=== PATIENT | male | born 1995 | race Caucasian/White ===

== ENCOUNTER 2022-03-27 13:24 | Emergency (ER) | payer OTHER ==
[~2022-03-27] VITALS: Ht 167.6 cm; Wt 62.1 kg
[~2022-03-27 13:24] MED LIST: FOLI1TAB90 PO; LIB25 PO; THIA-34 PO
[2022-03-27 13:43] VITALS: BP 127/99
--- NOTE | 2022-03-27 13:49 | NUR ---
Patient was wheelchair assisted to bed 7
--- NOTE | 2022-03-27 13:49 | NUR ---
PT W/C ASSISTED TO ER BED 7
--- NOTE | 2022-03-27 14:10 | NUR ---
26 y/o male c/o knee and leg pain since wednesday, reports pain came on suddenly making ambulation difficult. Patient stated "I can't walk". Reports constant 8/10 sharp "needle pain" that radiates to feet. Denies injury or trauma, tingling, nvd, dysuria, fever, chills, cp, or sob. Took antihistamine yesterday, unaware of name, without relief.
--- NOTE | 2022-03-27 14:31 | NUR ---
SARAH Vázquez evaluating patient at bedside.
[2022-03-27] MEDS ORDERED: DICYCLOMINE HCL LIQUID 20 MG, ALUMINUM HYD/MAG/SIMETHICONE 30 ML, LIDOCAINE VISCOUS 2% ... PO ONE ×3 (14:45)
[2022-03-27] MEDS ORDERED: KETOROLAC 30 MG/ML VIAL IM ONE (14:45)
[2022-03-27] MEDS ORDERED: DICYCLOMINE HCL LIQUID 10 MG/5 ML UDC ONE (14:51)
[2022-03-27] MEDS ORDERED: ALUMINUM HYD/MAG/SIMETHICONE 30 ML UDC ONE (14:51)
[2022-03-27] MEDS ORDERED: NAPR-1704 PO (15:39)
[2022-03-27 16:00] VITALS: BP 134/85
--- NOTE | 2022-03-27 16:00 | NUR ---
Patient discharged with v/s stable. Written and verbal after care instructions given. Patient alert, oriented and verbalized understanding of instructions. Ambulatory with steady gait. All questions addressed prior to discharge. ID band removed. Patient advised to follow up with PMD. Rx of Naproxen given. Opportunity to ask questions provided and answered. WORK NOTE HANDED TO PATIENT.
== END 2022-03-27 16:00 | disposition home or self-care (01) ==
LOC: MED 13:24
DX: M25.562 Pain in left knee (principal); M25.561 Pain in right knee; M79.672 Pain in left foot; M79.671 Pain in right foot; Z79.899 Other long term (current) drug therapy
CPT/HCPCS: 96372; 99283; J1885

== ENCOUNTER 2022-03-30 04:40 | Emergency (ER) | payer OTHER ==
[~2022-03-30] VITALS: Ht 167.6 cm; Wt 63.5 kg
[2022-03-30 04:40] VITALS: BP 141/101
[~2022-03-30 04:40] MED LIST changes: +NAPR-1704 PO
--- NOTE | 2022-03-30 04:52 | NUR ---
26 Y/O MALE TIFFANYA FROM HOME, C/O BILATERAL KNEE PAIN AND DIFFUSE UPPER ABD PAIN X3 DAYS. PT STATES HIS KNEES GAVE OUT ON HIM YESTERDAY AND FELL FROM STANDING HEIGHT AND BIT LIP. PT STATES HE HAS BEEN TAKING NAPROXIN FOR BILATERAL PEDAL EDEMA. A/OX4, GCS-15; UNLABORED BREATHING, SPEAKING IN FULL SENTENCES; AMBULATORY WITH UNSTEADY GAIT DUE TO PAIN. SKIN IS PINK/DRY/WARM. DENIES COUGH, FEVER, CP, SOB, OR N/V. HX: COVID LAST MONTH, ETOH, PSYCH NKA NO MEDS Addendum: 03/30/22 at 0636 by [email or web address] PT STATES WHEN HE FELL (03/29 AT 2300) HE FELL ON HIS FACE AND STATES HE MAY HAVE GONE UNCONSCIOUS.
--- NOTE | 2022-03-30 04:58 | NUR ---
DR ORLANDO AT BEDSIDE EXAMINING PT
[2022-03-30] MEDS ORDERED: FAMOTIDINE 20 MG/2 ML VIAL IVP ONE (05:00)
[2022-03-30] MEDS ORDERED: NACL 0.9% 1,000 ML IV ONE ×2 (05:00)
[2022-03-30] MEDS ORDERED: MORPHINE SULFATE 4 MG/ML SYR IVP ONE (05:00)
--- NOTE | 2022-03-30 05:05 | NUR ---
BLOOD OBTAINED AND WALKED TO LAB
--- NOTE | 2022-03-30 05:13 | NUR ---
PT TAKEN TO RADIOLOGY VIA LELO
[2022-03-30 05:20] LABS: BASOPHILS # (AUTO) 0.1 K/uL (0.00-0.22); BASOPHILS % (AUTO) 1.5 % (0.0-2.0); EOSINOPHILS # (AUTO) 0.1 K/uL (0-0.4); EOSINOPHILS % (AUTO) 1.9 % (0.0-4.0); HEMATOCRIT 44.5 % (36-52); HEMOGLOBIN 14.9 g/dL (12.0-18.0); LYMPHOCYTES # (AUTO) 1.7 K/uL (2.0-11.5); LYMPHOCYTES % (AUTO) 22.8 % (20.5-51.1); MEAN CORPUSCULAR HEMOGLOBIN 34 pg (27-31); MEAN CORPUSCULAR HGB CONC 34 g/dL (33-37); MEAN CORPUSCULAR VOLUME 101.7 fL (80-94); MONOCYTES % (AUTO) 13.9 % (1.7-9.3); NEUTROPHILS # (AUTO) 4.5 K/uL (1.8-7.7); NEUTROPHILS % (AUTO) 59.9 % (42.2-75.2); PLATELET COUNT (AUTO) 408 K/uL (140-450); RED BLOOD CELL COUNT(AUTO) 4.37 MIL/uL (4.20-6.10); RED CELL DISTRIBUTION WIDTH 15.7 % (11.6-13.7); WHITE BLOOD COUNT (AUTO) 7.4 K/uL (4.8-10.8)
[2022-03-30 05:57] LABS: ALBUMIN 3.8 g/dL (3.4-5.0); ANION GAP 15.2 (8-16); CARBON DIOXIDE 30.5 mmol/L (21-32); CREATININE 0.6 mg/dL (0.6-1.3); POTASSIUM 3.7 mmol/L (3.5-5.1); TOTAL BILIRUBIN 0.5 mg/dL (0.0-1.0)
[2022-03-30] MEDS ORDERED: levETIRAcetam 1,000 MG in NACL 0.9% 100 ML IV ONE (06:20)
--- NOTE | 2022-03-30 06:35 | NUR ---
DR LOUIE AT BEDSIDE DISCUSSING PT RESULTS
--- NOTE | 2022-03-30 06:36 | NUR ---
URINE COLLECTED AND WALKED TO LAB
--- NOTE | 2022-03-30 06:50 | NUR ---
COVID/BRICE SWAB COLLECTED AND WALKED TO LAB
--- NOTE | 2022-03-30 06:51 | NUR ---
PT TAKEN TO CT FOR REPEAT IMAGING
[2022-03-30 06:53] LABS: PROTHROMBIN TIME 9.6 secs (10.8-13.4)
[2022-03-30] MEDS ORDERED: levETIRAcetam 100 MG/ML VIAL IV ONE (06:55)
[2022-03-30 07:06] LABS: APPEARANCE,URINE CLEAR (CLEAR); BILIRUBIN,URINE NEGATIVE (NEGATIVE); BLOOD, URINE NEGATIVE (NEGATIVE); COLOR,URINE YELLOW (YELLOW); LEUKOCYTE ESTERASE ,URINE NEGATIVE (NEGATIVE); NITRITE, URINE NEGATIVE (NEGATIVE); UGLUCOSE NEGATIVE (NEGATIVE)
--- NOTE | 2022-03-30 07:14 | NUR ---
Pt report given to MICHAEL LINDSEY. Transfer of care at this time.
--- NOTE | 2022-03-30 07:17 | NUR ---
REPORT RECEIVED FROM DARREN RN, TRANSFER OF CARE AT THIS TIME. RECEIVED PT AWAKE IN BED, A/OX4, VERBALLY RESPONSIVE, KEPPRA INFUSING IN THE LEFT AC, SEE EMAR, DENIES PAIN AT THIS TIME, SEIZURE PADS IN PLACE, BED IN THE LOWEST POSITION, PER PT HE DRANK "4 SELTZERS WORTH OF ALCOHOL".
--- NOTE | 2022-03-30 07:42 | NUR ---
PT STATES PAIN IN THE BILATERAL KNEES, DR LOUIE MADE AWARE
[2022-03-30] MEDS ORDERED: fentaNYL citrate 0.05 MG/ML VIAL IVP ONE (07:45)
[2022-03-30] MEDS ORDERED: HYDROcodone/APAP 5/325 MG 1 TAB TAB PO ONE (10:35)
[2022-03-30 10:53] VITALS: BP 125/87
--- NOTE | 2022-03-30 11:07 | NUR ---
[facility] AT BEDSIDE
--- NOTE | 2022-03-30 11:14 | NUR ---
Patient to be transferred to [facility]. Is being transferred due to HIGHER LEVEL OF CARE/NEUROSURGERY. Receiving facility has accepting physician and available space. ER physician has signed transfer form. Patient or responsible democrat has agreed to transfer and signed form. Patient belongings inventoried and will be sent with patient. Copy of nursing notes, lab reports, EKG, Physicians Orders and X-rays to be sent with patient. Report called to JENI RODRIGUEZ at receiving facility. [facility] ambulance service has been called for transfer. ETA is 30MIN.
== END 2022-03-30 11:15 | disposition short-term general hospital (02) ==
LOC: MED 04:40
DX: S06.5X1A Traumatic subdural hemorrhage with loss of consciousness of 30 minutes or less, initial encounter (principal); Z20.822 Contact with and (suspected) exposure to COVID-19; F10.129 Alcohol abuse with intoxication, unspecified; M25.561 Pain in right knee; M25.562 Pain in left knee; Z79.899 Other long term (current) drug therapy; W19.XXXA Unspecified fall, initial encounter; Y93.89 Activity, other specified; Y92.89 Other specified places as the place of occurrence of the external cause; Y99.8 Other external cause status
CPT/HCPCS: 36415; 70450; 72125; 72131; 74176; 80053; 81003; 83690; 85025; 85610; 85730; 87426; 96361; 96365; 96375; 99285; G0482; J1953; J2270; J3010; J3490; J7030

== ENCOUNTER 2022-04-04 11:31 | Emergency (ER) | payer OTHER ==
[~2022-04-04] VITALS: Ht 167.6 cm; Wt 61.2 kg
[2022-04-04 11:35] VITALS: BP 93/50
--- NOTE | 2022-04-04 11:43 | NUR ---
PT WHEELED BACK TO LOBBY
--- NOTE | 2022-04-04 12:45 | NUR ---
PT WC ASSISTED TO BED 12
--- NOTE | 2022-04-04 12:46 | NUR ---
SARAH JARAMILLO AT BEDSIDE
--- NOTE | 2022-04-04 13:11 | NUR ---
26 y/o male, c/o garcia, dizzy, and "pins and needles" sensation for 2 months, pt states s/s worsened 5 days ago. pt currently has limited mobility in both lower extremities due to fall, normally ambulates with cane. pt states he also had last etoh drink 1 week ago. skin is pink/warm/dry, bruising on RLQ. a&o x4. lungs clear bl, heart rate even and regular. pt denies any fever, cp, sob, or cough at this time. pt states pain is 10/10 at this time. patient positioned for comfort. hob elevated. bed down. ermd made aware of pt. pmh: etoh use, anxiety nka med: gabapentin, librium, revia
[2022-04-04 13:21] VITALS: BP 93/50
--- NOTE | 2022-04-04 13:22 | NUR ---
Patient discharged with v/s stable. Written and verbal after care instructions given and explained. Patient verbalized understanding. Ambulatory with mother to car. All questions addressed prior to discharge. Advised to follow up with PMD. rehab resources given
== END 2022-04-04 13:22 | disposition home or self-care (01) ==
LOC: MED 11:31
DX: G62.1 Alcoholic polyneuropathy (principal); F10.988 Alcohol use, unspecified with other alcohol-induced disorder; Y90.9 Presence of alcohol in blood, level not specified; M79.672 Pain in left foot; M79.671 Pain in right foot
CPT/HCPCS: 99281

== ENCOUNTER 2022-05-11 19:05 | Emergency (ER) | payer OTHER ==
[~2022-05-11] VITALS: Ht 165.1 cm; Wt 61.2 kg
[2022-05-11 19:24] VITALS: BP 117/78
[2022-05-11] MEDS ORDERED: ONDANSETRON 4 MG/2 ML VIAL IVP ONE (20:00)
[2022-05-11] MEDS ORDERED: NACL 0.9% 1,000 ML IV ONE ×2 (20:00→21:50)
--- NOTE | 2022-05-11 20:05 | NUR ---
PT TO BED 7 VIA WC
--- NOTE | 2022-05-11 20:30 | NUR ---
26/M BIB C/O SARAH KNEE PAIN XTODAY. PER PATIETN HE IS A CHRONIC ALCOHOL DRINKER AND SINCE HE LEFT THE REHAB, HE HAS BEEN FEELING NAUSEATED AND PER PATIETN HAS BEEN VOMITING. PATIETN REPORTS LACK OF APPET. PATIENT LAST DRINK WAS YESTERDAY. RR APPEAR TO BE EVEN AND UNLABORED. PATIENT TACHY AT 117, MD AWARE. PATIENT IS AAOX4 AND AMBULATORY. PLACED IN BED. BED LOW AND LOCKED. ALL NEEDS MET. PMHX SEIZURE, ETOH, CHRONIC PAIN NKA
--- NOTE | 2022-05-11 20:30 | NUR ---
22G LEFT HAND IV ESTABLISHED. IVF STARTED ORDERED
--- NOTE | 2022-05-11 21:16 | NUR ---
PATIENT SITTING IN BED ON MONITOR. PATIENT TOLERATED MEDICATIOON WELL. NO EPISODES OF VOMITING
--- NOTE | 2022-05-11 21:42 | NUR ---
Dr. Mena examining patient.
[2022-05-11] MEDS ORDERED: KETOROLAC 60 MG/2 ML VIAL IM ONE (21:45)
[2022-05-11] MEDS ORDERED: ONDA8TAB87 PO (22:09)
[2022-05-11] MEDS ORDERED: IBUP-2213 PO (22:09)
[2022-05-11] MEDS ORDERED: ONDANSETRON 4 MG/2 ML VIAL ONE (22:21)
--- NOTE | 2022-05-11 22:21 | NUR ---
PATIENT DID NOT TOLERATE PO CHALLENGE. EPISODE OF VOMIT X1. MD MADE AWARE. VERBAL ORDER OF ZOFRAN 4MG IVP. CARRIED OUT
--- NOTE | 2022-05-11 22:50 | NUR ---
PATIENT STATED THAT HE WOULD CALL STEP FATHER AND UPDATE ON STATUS.
--- NOTE | 2022-05-11 23:00 | NUR ---
PATIENT TOLERATED PO FLUIDS. NO EPISODES OF VOMIT AND NAUSEA AT THIS TIME.
--- NOTE | 2022-05-11 23:30 | NUR ---
SPOKE TO [facility]AB[facility] PATIENTS STEP FATHER. STATED THAT HE WANTS PATIENT TO BE ADMITTED BECAUSE HE IS ALWAYS ADMITTED WHEN HE ARRIVES TO HOSPITAL. EXPLAINED TO FATHER THAT I WILL SPEAK TO ERMD TO ASSESS PATIENT AND ADDRESS HIS CONCERNS. MADE AWARE.
--- NOTE | 2022-05-11 23:34 | NUR ---
Dr. Garcia examining patient.
--- NOTE | 2022-05-11 23:50 | NUR ---
SPOKE TO PATIENTS STEP FATHER AND UPDATED ON PATIENTS CONDITION AND MD STATED THAT PATIENT WAS STABLE ENOUGH TO GO HOME. PATIENT ALSO MADE AWARE BY MD THAT HE WAS STILL BEING DISCHARGED HOME
[2022-05-11 23:58] VITALS: BP 122/73
--- NOTE | 2022-05-11 23:58 | NUR ---
Patient discharged with v/s stable. Written and verbal after care instructions given NAUSEA AND VOMITING and explained. Patient alert, oriented and verbalized understanding of instructions. Ambulatory with steady gait. All questions addressed prior to discharge. ID band removed. Patient advised to follow up with PMD. Rx of IBUPROFEN, AND ZOFRAN given.
--- NOTE | 2022-05-11 23:58 | NUR ---
PATIENT CALLED STEPFATHER TO PICK HIM UP. WAITING FOR RIDE
--- NOTE | 2022-05-12 00:34 | NUR ---
The patient's care was reviewed and supervised by Mini Carbajal RN, RN.
== END 2022-05-11 23:58 | disposition home or self-care (01) ==
LOC: MED 19:05
DX: R11.2 Nausea with vomiting, unspecified (principal); E86.0 Dehydration
CPT/HCPCS: 96361; 96374; 96375; 99285; J1885; J2405; J7030